=== PATIENT | female | born 1945 | race Caucasian/White ===

== ENCOUNTER 2020-05-23 14:15 | Emergency (ER) | payer MEDICARE, MEDICAID, SELFPAY ==
[2020-05-23] VITALS (11 sets, daily range): BP systolic 107–150; BP diastolic 59–90; PULSE 100–121; RESP 18–30; TEMP 36.9; O2SAT 92–98; BMI 26.8
--- NOTE | 2020-05-23 14:30 | EKG12_ITS ---
Test Reason : SOB Blood Pressure : / mmHG Vent. Rate : 140 BPM Atrial Rate : 115 BPM P-R Int : 134 ms QRS Dur : 064 ms QT Int : 314 ms P-R-T Axes : 054 -79 120 degrees QTc Int : 479 ms Somatic motion artifact, consider sinus tachycardia Left axis deviation Possible Pulmonary disease pattern Inferior infarct , age undetermined , cannot be excluded Abnormal ECG Confirmed by ARLETTE LANZA, CRISTI ([id number]), editor magazine ANGELA ROBERT ([id number]) on 05/25/2020 10:16:37 AM Referred By: DARLENE Confirmed By:CRISTI CHONG MD
--- NOTE | 2020-05-23 14:30 | RAD_ITS ---
STUDY: X-RAY CHEST REASON FOR EXAM: Female, 74 years old. COUGH, SHORTNESS OF BREATH, COPD. TECHNIQUE: Single AP portable view of the chest. COMPARISON: None. FINDINGS: EKG electrodes are seen. Small right pleural effusion with underlying right lower lobe infiltration and/or atelectasis. Left lung is clear. Normal size heart. Normal mediastinum and franck. Normal visualized pulmonary arteries. Normal visualized aortic arch and descending thoracic aorta. Normal visualized thoracic spine. Normal visualized ribs, clavicles, and shoulders. There is no demonstrated abnormality of the visualized soft tissue structures of the upper abdomen. RAD/Chest 1 View (Portable) IMPRESSION: Small left pleural effusion with underlying right basilar infiltration and/or atelectasis. Electronically Signed: Gustavo Badillo, at 16:00 EDT , Service support ,
--- NOTE | 2020-05-23 14:34 | ED.DCSUM_ITS ---
History of Present Illness Chief Complaint: Weakness Detail of Chief Complaint: Productive cough, wheezing, weakness bilateral hip pain Informant: Patient Onset: - - Has been on the floor since Saturday Context: Sudden Onset Timing: Continuous Quality: Weakness Location: Residence Current Severity: Mild Maximum Severity: Severe Worsened by: Dyspnea on exertion, pelvic pain due to incontinence of urine and stool Relieved by: Nothing Associated Symptoms: Productive cough Narrative: Patient is an elderly woman with history of hypertension, hypercholesterolemia who believes she has pelvic cancer because she did not follow-up as instructed in 2016. She does have history of COPD. She states is not smoking as much. Her cough is productive of colored sputum. She denies blood. She denies pleuritic pain. She has had no contact to her knowledge with anyone that has tested positive for COVID or suspected of having COVID. She states family drops off her food and she has no contact. She denies headache, visual, ocular auditory symptoms. She denies rhinorrhea, congestion or postnasal drainage. She denies sore throat. She denies ear pain, decreased hearing or ear drainage. She denies neck pain. She denies chest pain. She denies abdominal pain. She does complain of bilateral buttocks, hip and perineal pain. Nurse informed me that she was incontinent of urine and stool and caked with urine and stool. Patient has never been to this facility and there are no prior records. Prior similar symptoms: No Recent Illness/Hospitalization: No - Past Medical History (1) History of hypertension Status: Acute (2) History of COPD Status: Chronic (3) History of hypercholesterolemia Status: Acute Past Medical History - Allergies and Home Meds Allergies/Adverse Reactions: Allergies No Known Allergies Allergy (Verified 05/23/20 14:37) Primary Care Physician: Malcolm Morrison MD [Primary Care Provider] - Prior records reviewed: No Past Medical History: - - Previously documented Surgical History: noncontributory Lives: Alone Smoking Status: Current some day smoker Alcohol: None Drugs: None Review of Systems General: Reports: Chills - Patient states she had chills on Saturday., Malaise. Denies: Fever, Subjective, Sweats Eyes: Denies: Visual changes - bilaterally, Blurred Vision - bilaterally ENT: Denies: Bilateral ear pain, Rhinorrhea, Sore throat Cardiovascular: Denies: Chest pain, Palpitations, Heart racing Respiratory: Reports: Dyspnea, Cough, Sputum, Dyspnea on exertion. Denies: Orthopnea, Paroxysmal nocturnal dyspnea Gastrointestinal: Denies: Abdominal pain, Nausea, Vomiting, Diarrhea, Melena, Hematochezia Genitourinary: Denies: Dysuria, Hematuria, Frequency Musculoskeletal: Denies: Myalgias, Arthralgias, Neck pain, Back pain, Swelling, Extremity Pain, -, - Skin: Reports: Rash, Wounds Neurological: Reports: Weakness. Denies: Headache, Parasthesia, Numbness, -, - Psych: Denies: Depression Endocrine: Denies: Polyuria, Polydipsia Hematologic: Denies: Easy bruising, Easy bleeding Allergy: Denies: Uticaria, Swelling of the mouth, Swelling of the tongue Physical Exam Inital Vital Signs reviewed: Yes General: Well developed, Unkempt, Acute Distress Head: Normocephalic, Atraumatic. Negative for: Trauma, Tenderness Eyes: Perrl, EOMI. Negative for: Pale conjunctiva, Scleral icterus ENT: No rhinorrhea, TM's clear, Dry mucous membranes Neck: Supple, Nontender, No lymphadenopathy, No JVD Cardiovascular: Regular rhythm, No murmurs, Normal S1, Normal S2, Tachycardia Respiratory: No distress - Minimal use of accessory muscles, Wheezing, Decreased Air Movement Abdomen: Soft, Nontender, Nondistended, Normal bowel sounds, No masses. Negative for: Hepatomegaly, Splenomegaly, Mass Rectal: - - There is area of excoriation and bruising perirectal and perineal region. : - - The labia is erythematous. Both buttocks and hip region are erythematous suspect secondary to urine and stool. Back: Nontender, Normal Inspection Extremities: Edema. Negative for: Nontender, No edema, Calf Tenderness Skin: Normal color, No Trauma - Bruising as previously described, Rash. Negative for: Cyanosis, Diaphoresis, Jaundice Neurological: Alert, Oriented x3, Cranial nerves II-XII grossly intact, Normal Strength, Normal Sensation, Normal DTR. Negative for: Normal Gait Psychological: Normal affect Diagnostic/Tx/Re-eval Chest X-Ray - ED: 1 View, Read by ED Physician, Normal, Heart, Mediastinum, Bony Structures, Chronic Changes, Right Effusion, - - View portable chest x-ray interpreted by me at 1551. Impressions Chest X-Ray 05/23/20 14:30 IMPRESSION: Small left pleural effusion with underlying right basilar infiltration and/or atelectasis. Electronically Signed: Gsutavo Badillo, at 16:00 EDT , Service support , Chest CTA 05/23/20 18:00 IMPRESSION: No demonstrated PE, or thoracic aortic aneurysm or dissection Large bulky infiltrative soft tissue masses in the superior mediastinum, right infrahilar region and posterior to the right heart border invading into the left atrium. Findings are highly suspicious for neoplastic process with metastasis Underlying emphysema with chronic interstitial changes in both lung ramon Large loculated right pleural effusion Bulky abnormal celiac axis lymphadenopathy Degenerative bony changes Electronically Signed: Reji Wilcox MD at 18:50 EDT , Service support , 05/23/20 14:30 Chest 1 View (Portable) [RAD] Stat 05/23/20 18:00 CTA Chest W/WO Contrast [CT] Stat Laboratory Results 05/23/20 05/23/20 05/23/20 14:48 15:14 15:15 WBC 8.8 RBC 4.31 Hgb 12.3 Hct 38.2 MCV 88.6 MCH 28.5 MCHC 32.2 RDW Std Deviation 46.2 H RDW Coeff of Jose 14.3 Plt Count 249 MPV 10.8 Immature Gran % (Auto) 0.600 Neut % (Auto) 84.1 H Lymph % (Auto) 9.9 L Delta % (Auto) 4.5 Eos % (Auto) 0.6 Baso % (Auto) 0.3 Absolute Neuts (auto) 7.4 Absolute Lymphs (auto) 0.87 Nucleated RBC % 0 PT INR APTT Specimen Type ART Sample Site R RADIAL pH 7.42 Bicarbonate Actual 25.3 POC Total CO2 26 Base Excess 1 O2 Saturation 97 ABG pCO2 38.7 ABG pO2 87 Eugene Test POS O2 Delivery Device Nasal Can Liter Flow 2.5 Blood Gas Notified Whom ED Blood Gas Notified Time 1510 Sodium Potassium Chloride Carbon Dioxide Anion Gap BUN Creatinine Estim Creat Clear Calc Est GFR (MDRD) Af Amer Est GFR (MDRD) Non-Af BUN/Creatinine Ratio Glucose Lactic Acid Calcium Total Bilirubin AST ALT Alkaline Phosphatase Total Creatine Kinase Troponin I Total Protein Albumin Globulin Albumin/Globulin Ratio Urine Color Urine Clarity Urine pH Ur Specific [place] Urine Protein Urine Glucose (UA) Urine Ketones Urine Occult Blood Urine Nitrite Urine Bilirubin Urine Urobilinogen Ur Leukocyte Esterase Urine RBC Urine WBC Ur Squamous Epith Cells Urine Bacteria Urine Mucus COVID-19 (OWEN) Not Detected 05/23/20 05/23/20 05/23/20 15:15 15:15 15:15 WBC RBC Hgb Hct MCV MCH MCHC RDW Std Deviation RDW Coeff of Jose Plt Count MPV Immature Gran % (Auto) Neut % (Auto) Lymph % (Auto) Delta % (Auto) Eos % (Auto) Baso % (Auto) Absolute Neuts (auto) Absolute Lymphs (auto) Nucleated RBC % PT 13.8 INR 1.1 APTT 31.2 Specimen Type Sample Site pH Bicarbonate Actual POC Total CO2 Base Excess O2 Saturation ABG pCO2 ABG pO2 Eugene Test O2 Delivery Device Liter Flow Blood Gas Notified Whom Blood Gas Notified Time Sodium 132 L Potassium 3.8 Chloride 94 L Carbon Dioxide 27.0 Anion Gap 11 BUN 17 Creatinine 1.27 H Estim Creat Clear Calc 34.07 Est GFR (MDRD) Af Amer 53 L Est GFR (MDRD) Non-Af 44 L BUN/Creatinine Ratio 13.4 Glucose 90 Lactic Acid 1.6 Calcium 9.3 Total Bilirubin 0.70 AST 36 ALT 22 Alkaline Phosphatase 74 Total Creatine Kinase Troponin I < 0.015 Total Protein 7.3 Albumin 3.1 L Globulin 4.2 Albumin/Globulin Ratio 0.7 L Urine Color Urine Clarity Urine pH Ur Specific [place] Urine Protein Urine Glucose (UA) Urine Ketones Urine Occult Blood Urine Nitrite Urine Bilirubin Urine Urobilinogen Ur Leukocyte Esterase Urine RBC Urine WBC Ur Squamous Epith Cells Urine Bacteria Urine Mucus COVID-19 (OWEN) 05/23/20 05/23/20 15:15 15:15 WBC RBC Hgb Hct MCV MCH MCHC RDW Std Deviation RDW Coeff of Jose Plt Count MPV Immature Gran % (Auto) Neut % (Auto) Lymph % (Auto) Delta % (Auto) Eos % (Auto) Baso % (Auto) Absolute Neuts (auto) Absolute Lymphs (auto) Nucleated RBC % PT INR APTT Specimen Type Sample Site pH Bicarbonate Actual POC Total CO2 Base Excess O2 Saturation ABG pCO2 ABG pO2 [place] Test O2 Delivery Device Liter Flow Blood Gas Notified Whom Blood Gas Notified Time Sodium Potassium Chloride Carbon Dioxide Anion Gap BUN Creatinine Estim Creat Clear Calc Est GFR (MDRD) Af Amer Est GFR (MDRD) Non-Af BUN/Creatinine Ratio Glucose Lactic Acid Calcium Total Bilirubin AST ALT Alkaline Phosphatase Total Creatine Kinase 215 H Troponin I Total Protein Albumin Globulin Albumin/Globulin Ratio Urine Color Yellow Urine Clarity Clear Urine pH 6.0 Ur Specific [place] 1.015 Urine Protein 15 H Urine Glucose (UA) Normal Urine Ketones 150 H Urine Occult Blood Negative Urine Nitrite Negative Urine Bilirubin Negative Urine Urobilinogen Normal Ur Leukocyte Esterase Negative Urine RBC 0 SEEN Urine WBC 0 SEEN Ur Squamous Epith Cells 0 SEEN Urine Bacteria 0 SEEN Urine Mucus 0 SEEN COVID-19 (OWEN) Opiate test was negative. CT reveals a bulky soft tissue mass involving the superior right hilum, posterior to the right cardiac border with invasion into the left atrium. Patient was informed of results. She requested transfer to [facility]. - EKG Initial EKG Interpretation: - - Tachycardia. Suspect sinus. Poor quality EKG due to artifact and movement. QS duration is 64 ms. QT duration is 314 ms. [place] is to the left. There is a premature ventricular beat noted. - Medical Decision Making Because patient is tachycardic tachypneic and need to evaluate for COVID, pneum onia and exacerbation COPD. Chest x-ray was obtained. She was treated with DuoNeb and albuterol. EKG and troponin were obtained to rule out cardiac ischemia. Because patient was on the floor since Saturday CPK was ordered to evaluate for rhabdomyolysis and acute kidney injury. Case was discussed with MICU physician at [facility] who accepted patient. - Critical Care Time Critical care time (excluding procedures): 30-74 minutes, Discussing w/Patient &/or Family/Abalone Sheller, Discussing w/Consultants, Arranging Admission or Transfer - Critical care time 31 minutes ED Disposition - Plan for ED Patient: Disposition: [facility] - Main Diagnosis: Malignant right pleural effusion, Right hilar mass with invasion left atri Referrals: Malcolm Morrison MD [Primary Care Provider] -
--- NOTE | 2020-05-23 14:35 | ED.RN ---
pt has several areas that are red and broken down. pt was laying on the floor from sat at 630pm until squad picked her up. pt was incontinent and also defecated on herself. pts skin is red swollen sore and bleeding in areas. Pt is alert and oriented.
[2020-05-23] MEDS: Ipratropium/Albuterol Sulfate 3 ML AMPUL.NEB INHALATION (14:52)
[2020-05-23] MEDS: Albuterol 2.5 MG/3 ML VIAL.NEB. INHALATION ×3 (15:00→15:30)
[2020-05-23 15:30] LABS: Bacteria 0 SEEN /hpf (None Seen); Mucous, Urine 0 SEEN /hpf (<or=2+); Red Blood Cells-Urine 0 SEEN /hpf (0-5); Squamous Epithelial Cells - UA 0 SEEN /hpf (5-10); White Blood Cells 0 SEEN /hpf (0-5)
[2020-05-23 15:31] LABS: Base Excess 1 mmol/L (-2 to +2); Bicarbonate 25.3 mmol/L (22-26); PO2 87 mmHG (75-100); SO2 97 % (95-99); Total Carbon Dioxide 26 mmol/L; pCO2 38.7 mmHg (35-45); pH 7.42 (7.35-7.45)
[2020-05-23 15:36] LABS: Absolute Lymphocyte Count 0.87 X10^3/uL (0.83-4.51); Absolute Neutrophil Count 7.4 X10^3/uL (2.0-7.7); Basophil# 0.03 X10^3/uL; Basophil% 0.3 % (0-1); Eosinophil# 0.05 X10^3/uL; Eosinophils% 0.6 % (0-5); Hematocrit 38.2 % (37-47); Hemoglobin 12.3 g/dL (12.0-15.0); Lymphocyte # 0.87 X10^3/ul (4.0); Lymphocyte % 9.9 % (19-41); Mean Corp Hgb Conc 32.2 g/dL (32-36); Mean Corpuscular Hgb 28.5 pg (27.0-32.0); Mean Corpuscular Volume 88.6 fL (81-99); Mean Platelet Vol. 10.8 fl (6.2-12.0); Monocyte% 4.5 % (0-10); NRBC Flagged by Analyzer 0 % (0-5); Neutrophil % 84.1 % (47-70); Platelet Count 249 K/mm3 (150-450); RBC Distribution Width CV 14.3 % (11.6-14.6); RBC Distribution Width SD 46.2 fl (35.1-43.9); Red Blood Count 4.31 M/mm3 (4.2-5.4); White Blood Count 8.8 K/mm3 (4.4-11.0)
[2020-05-23 15:40] LABS: Color, Urine Yellow (Yellow); Glucose, Dipstick Normal (Normal); Leukocyte Esterase-Dipstick Negative /ul (Negative); Nitrite-Dipstick Negative (Negative); Occult Blood-Urine Negative /ul (Negative); Protein-Dipstick 15 mg/dl (Negative); Specific Gravity, Urine 1.015 (1.002-1.030); Urine Bilirubin Dipstick Negative (Negative); Urine Clarity Clear (Clear); Urine Urobilinogen Normal (Normal)
[2020-05-23 15:49] LABS: International Normalized Ratio 1.1; Prothrombin Time (Protime)PT. 13.8 SECONDS (11.7-14.9)
[2020-05-23 15:50] LABS: Partial Thromboplast Time 31.2 Seconds (24.1-36.2)
[2020-05-23 15:53] LABS: Blood Gas Specimen Type ART
[2020-05-23 15:53] LABS: Ketone-Dipstick 150 mg/dl (Negative)
[2020-05-23 15:54] LABS: Allen Test POS; LPM 2.5 /min; O2 Delivery Device Nasal Can; SITE R RADIAL; Time Given 1510
[2020-05-23 15:56] LABS: ALB/GLOB Ratio 0.7 RATIO (0.9-2.4); AST(SGOT) 36 U/L (15-37); Alanine Aminotransfer ALT/SGPT 22 U/L (13-56); Albumin, Serum 3.1 g/dL (3.2-5.0); Alkaline Phosphatase 74 U/L (45-117); Anion Gap 11 (5-15); BUN 17 mg/dL (7-18); BUN/Creat Ratio 13.4 RATIO (10-20); Calcium,Total 9.3 mg/dL (8.5-10.1); Chloride 94 mmol/L (98-107); Creatinine, Serum 1.27 mg/dL (0.55-1.02); EST Glomerular Filtration Rate 44 mL/min (>60); Est Glom Filt Rate - Afr Amer 53 mL/min (>60); Estimated Creatinine Clearance 34.07 ml/min; Globulin 4.2 g/dL (2.2-4.2); Glucose 90 mg/dL (74-106); Potassium 3.8 mmol/L (3.5-5.1); Protein, Total 7.3 g/dL (6.4-8.2); Sodium Level 132 mmol/L (136-145)
[2020-05-23 16:03] LABS: Lactic Acid 1.6 mmol/L (0.4-1.9)
[2020-05-23 17:18] LABS: CPK Total, Creatine Kinase 215 U/L (26-192)
--- NOTE | 2020-05-23 18:00 | CT_ITS ---
STUDY: CTA CHEST REASON FOR EXAM: Female, 74 years old. SOB/WEAKNESS. Hx of COPD, emphysema, diabetes, HTN and prior tonsillectomy RADIATION DOSAGE (If Supplied By Facility): CTDIvol = ( 5.58 ) mGy, DLP = ( 231.93 ) mGycm TECHNIQUE: The examination was performed with the intravenous administration of Isovue 300 100ml. Post-processing of the angiographic images was performed, with multiplanar reformation and 3D reconstruction. Individualized dose optimization techniques were used for this CT. COMPARISON: None. FINDINGS: Normal enhancement of the main pulmonary artery and right and left pulmonary arteries. Normal enhancement of the bilateral peripheral pulmonary arteries. There is no demonstrated pulmonary embolism. Normal thoracic aorta and visualized great vessels. There is no demonstrated aortic dissection. There are calcified coronary vessels as well as a prominent pericardial effusion and infiltrative soft tissue mass coming from the infrahilar region. The pericardial effusion measures 2 cm. Soft tissue windows show normal-appearing thyroid gland. There are large bulky mediastinal and perihilar lymph nodes. There is an AP window lymph node measuring 1.65 cm, and a large infrahilar mass measuring 2.5 x 4.2 cm which is narrowing the right mainstem bronchus There is a consolidation abutting the posterior right heart border infiltrating and narrowing the left atrium measuring 3.9 x 4.7 cm. There is a large loculated right pleural effusion and consolidation in the right lung base. The lung windows show underlying emphysema with interstitial changes. Cuts through the upper abdomen show enlarged left lobe of the liver and suspicious celiac axis adenopathy. CT/CTA Chest W/WO Contrast IMPRESSION: No demonstrated PE, or thoracic aortic aneurysm or dissection Large bulky infiltrative soft tissue masses in the superior mediastinum, right infrahilar region and posterior to the right heart border invading into the left atrium. Findings are highly suspicious for neoplastic process with metastasis Underlying emphysema with chronic interstitial changes in both lung ramon Large loculated right pleural effusion Bulky abnormal celiac axis lymphadenopathy Degenerative bony changes Electronically Signed: Reji Wilcox MD at 18:50 EDT , Service support ,
[2020-05-24] VITALS (10 sets, daily range): BP systolic 97–125; BP diastolic 45–89; PULSE 87–100; RESP 14–21; O2SAT 94–100
== END 2020-05-24 09:13 | disposition short-term general hospital (02) ==
PROVIDERS: Emergency Provider Emergency Medicine; PCP Family Medicine
DX: C80.1 Malignant (primary) neoplasm, unspecified (principal); J91.0 Malignant pleural effusion; R91.8 Other nonspecific abnormal finding of lung field; R59.1 Generalized enlarged lymph nodes; I49.3 Ventricular premature depolarization; R05 Cough; M25.552 Pain in left hip; M25.551 Pain in right hip; R32 Unspecified urinary incontinence; R15.9 Full incontinence of feces; R06.2 Wheezing; R00.0 Tachycardia, unspecified; R06.82 Tachypnea, not elsewhere classified; R10.2 Pelvic and perineal pain; J44.9 Chronic obstructive pulmonary disease, unspecified; I10 Essential (primary) hypertension; E78.00 Pure hypercholesterolemia, unspecified; F17.200 Nicotine dependence, unspecified, uncomplicated; Z79.899 Other long term (current) drug therapy
CPT/HCPCS: 36600; 71045; 71275; 80053; 81001; 82550; 82803; 83605; 84484; 85025; 85610; 85730; 87635; 93005; 94640; 99285; G2023; Q9967; A4216; U0003